=== PATIENT | female | born 1945 | race Caucasian/White ===

== ENCOUNTER 2016-08-08 14:30 | Outpatient (CLI) | payer MEDICARE, OTHER | END 2016-08-08 14:32 | LOC: NEPHRO 14:30 | PROVIDERS: ATTEND Internal Medicine Nephrology | DX: E11.22 Type 2 diabetes mellitus with diabetic chronic kidney disease (principal); N18.9 Chronic kidney disease, unspecified; I50.9 Heart failure, unspecified; M10.9 Gout, unspecified | CPT/HCPCS: G0463 ==

== ENCOUNTER 2016-10-17 12:21 | Outpatient (CLI) | payer MEDICARE, OTHER | END 2016-10-17 12:22 | LOC: CARD 12:21 | PROVIDERS: ATTEND Internal Medicine Cardiovascular Disease | DX: I47.1 Supraventricular tachycardia (principal); I10 Essential (primary) hypertension; N18.4 Chronic kidney disease, stage 4 (severe); E66.9 Obesity, unspecified | CPT/HCPCS: G0463 ==

== ENCOUNTER 2017-02-06 14:19 | Outpatient (CLI) | payer MEDICARE, OTHER | END 2017-02-06 14:20 | LOC: NEPHRO 14:19 | PROVIDERS: ATTEND Internal Medicine Nephrology | DX: N18.3 Chronic kidney disease, stage 3 (moderate) (principal); N28.9 Disorder of kidney and ureter, unspecified | CPT/HCPCS: G0463 ==

== ENCOUNTER 2017-08-14 14:03 | Outpatient (CLI) | payer MEDICARE, OTHER | END 2017-08-14 14:04 | LOC: NEPHRO 14:03 | PROVIDERS: ATTEND Internal Medicine Nephrology | DX: N18.3 Chronic kidney disease, stage 3 (moderate) (principal) | CPT/HCPCS: G0463 ==

== ENCOUNTER 2017-09-26 13:33 | Outpatient (CLI) | payer MEDICARE, OTHER | END 2017-09-26 13:34 | LOC: RAD 13:33 | PROVIDERS: ATTEND Nurse Practitioner Family | DX: E21.3 Hyperparathyroidism, unspecified (principal) | CPT/HCPCS: 77080 ==

== ENCOUNTER 2017-10-02 13:06 | Outpatient (CLI) | payer MEDICARE, OTHER | END 2017-10-02 13:08 | LOC: CARD 13:06 | PROVIDERS: ATTEND Internal Medicine Cardiovascular Disease | DX: I10 Essential (primary) hypertension (principal); N18.4 Chronic kidney disease, stage 4 (severe); E66.9 Obesity, unspecified; Z86.79 Personal history of other diseases of the circulatory system | CPT/HCPCS: G0463 ==

== ENCOUNTER 2017-12-04 13:41 | Outpatient (CLI) | payer MEDICARE, OTHER | END 2017-12-04 13:50 | LOC: NEPHRO 13:41 | PROVIDERS: ATTEND Internal Medicine Nephrology | DX: N18.3 Chronic kidney disease, stage 3 (moderate) (principal); I10 Essential (primary) hypertension | CPT/HCPCS: G0463 ==